=== PATIENT | female | born 1970 | race Caucasian/White ===

== ENCOUNTER 2020-11-12 11:02 | Day surgery (SDC) | payer BC ==
[~2020-11-12] VITALS: Ht 172.7 cm; Wt 94.5 kg
[~2020-11-12 11:02] MED LIST: ACETAMINOPHEN 500 MG TABLET PO PRN; ALBU2.5V8 INH; AMLO-186 PO; FEXO180T81 PO; HYDROmorphone 2 MG/ML VIAL IVP PRN; IV RINGERS,LACTATED 1000ML 1,000 ML IV SCH; LORA-434 PO; LOSA100T14 PO; MORPHINE SULFATE 2 MG/ML INJ. IVP PRN; PROCHLORPERAZINE 10 MG/2 ML VIAL. IVP PRN; SERT50TA PO; fentaNYL PF VIAL 100 MCG/2 ML VIAL IVP PRN
[2020-11-12 11:34] VITALS: BP 137/81
[2020-11-12] MEDS ORDERED: PROPOFOL 10 MG/ML (20ML) VIAL. IV ONE (12:36)
[2020-11-12] MEDS ORDERED: LIDOCAINE 2% PF 5 ML VIAL. ONE (12:37)
[2020-11-12] MEDS ORDERED: SUCCINYLCHOLINE 200 MG/10 ML VIAL. ONE (12:37)
[2020-11-12] MEDS ORDERED: ROCURONIUM 50 MG/5 ML VIAL. ONE (12:39)
[2020-11-12] MEDS ORDERED: DEXAMETHASONE SOD PHOS 4 MG/ML VIAL ONE (12:40)
[2020-11-12] MEDS ORDERED: ONDANSETRON PF 4 MG/2 ML VIAL. ONE (12:40)
[2020-11-12] MEDS ORDERED: fentaNYL PF VIAL 100 MCG/2 ML VIAL ONE (12:40)
[2020-11-12] MEDS ORDERED: BUPIVACAINE-EPI 0.25%-1:200000 MPF 30 ML VIAL. ONE (12:54)
[2020-11-12] MEDS ORDERED: NEOSTIGMINE METHYLSULFATE 5 MG/5 ML SYRINGE. ONE (13:27)
[2020-11-12] MEDS ORDERED: GLYCOPYRROLATE 1 MG/5 ML VIAL. ONE (13:27)
[2020-11-12] MEDS ORDERED: SEVOFLURANE UP TO 15 MINUTES. IH ONE (13:43)
[2020-11-12] MEDS ORDERED: SEVOFLURANE 61 TO 120 MINUTES. IH ONE (13:43)
--- NOTE | 2020-11-12 13:43 | PDOC4 ---
Operative Note Operative Note Date: November 12 twenty-one at thirteen [age] Preoperative diagnosis: Appendicitis Postoperative diagnosis: Same Procedure: Laparoscopic interval appendectomy Surgeon: Sanjay Specimen: Appendix Dictation: Patient is a 50-year-old female who 6 weeks ago had acute appendicitis with perforation and abscess that was drained at the time she was treated with antibiotics has subsequently improved. And returns now for interval appendectomy. Procedure of appendectomy was explained to the patient detail risk benefits were also discussed including bleeding infection injury to intra-abdominal contents possible necessitating further open operations alternatives to this procedure also discussed with the patient who seemed to understand and gave a verbal and written consent to have the procedure performed. Patient was taken to the operating room placed in the supine position general anesthesia was initiated once patient was sleeping intubated her abdomen was prepped and draped usual sterile fashion using ChloraPrep. An area just below the umbilicus was injected with quarter percent Marcaine with epinephrine incision was made eleven blade scalpel and a varies needle was placed within the abdomen creating pneumoperitoneum once this was complete 12 mm port was placed in a 5 mm camera was placed within the abdomen which was insp ected the appendix was noted to be in the right lower quadrant it was adherent to the lateral abdominal wall. A 5 mm port was placed low in the midline pelvis and a 5 mm port was placed in the right midabdomen all under direct visualization. The camera was moved with a 5 mm port in the pelvis the appendix was grasped retracted towards the anterior abdominal wall a window was prop agated the base of the appendix through the mesoappendix with a [place] dissector. A Endo JERMAINE stapler was used to staple and transect the base of the appendix. Blunt dissection was used to dissect the appendix off the lateral abdominal wall a second load for the stapler was used to staple and transect the mesoappendix. The appendix were then placed in Endo Catch bag and removed from the umbilicus right lower quadrant pelvis were irrigated and suctioned dry hemostasis need to be appropriate and the pneumoperitoneum was reduced all ports were removed the fascial defect at the umbilicus was closed with a [id number] 0 Vicryl suture and the skin was reapproximated all port sites for subcuticular Monocryl Mastisol Steri-Strips and island dressings were ap plied. Patient was awakened and extubated in the operating room taken to recovery in stable condition all sponge instrument needle counts listed as correct estimated blood loss 10 mL HAL KWON MD Nov 12, 2020 13:43
[2020-11-12] MEDS ORDERED: OXYC-325 PO (13:44)
--- NOTE | 2020-11-12 13:46 | DISCH ---
DISCHARGE INSTRUCTIONS Condition on Discharge Condition on Discharge: Stable Activity After Discharge Activity Instructions for Disc: Avoid exertion Other activity instructions: No lifting more than 20 pounds for 2 weeks Diet after Discharge Diet after Discharge: Regular Wound Incision Care Other wound/incision instructi: Esther shower in 24 hours Contacting the after DC Call your doctor for: If your condition worsens Follow-Up Follow up with: Dr. Kwon in 2 weeks HAL KWON MD Nov 12, 2020 13:46
[2020-11-12] MEDS ORDERED: oxyCODONE/APAP 5/325 1 TAB TABLET PO ONE (14:00)
[2020-11-12 14:30] VITALS: BP 134/89
--- NOTE | 2020-11-13 17:07 | PATHOLOGY ---
[facility] Accession Number: [id number] . 01 Material submitted: . appendix - APPENDIX . 01 Clinical history: . LAP APPY APPENDICEAL ABSCESS . 02 Diagnosis: Appendix, laparoscopic appendectomy: - Chronic appendicitis with periappendiceal fibrosis and resolving periappendiceal abscess. ([facility]; 11/13/2020) [facility] 11/13/2020 1350 Local . 02 Comment: There is no evidence of malignancy. ([facility]; 11/13/2020) . 02 Electronically signed: . Ricardo Mcintosh MD, Pathologist NPI- [id number] . 01 Gross description: . Fixative: Formalin Labeled: Appendix Appendix length: 6.7 cm Appendix diameter: Up to 1.3 cm Mesoappendix: 0.8 cm Proximal margin: Stapled Serosa: Light echeverria-santos and hemorrhagic Cut surface: Pinpoint to dilated lumen Luminal diameter: Up to 0.6 cm Perforation: Present Lesions/abnormalities: None identified A1 Proximal margin (inked black) and distal tip, bisected A2 Mid appendix([facility]; 11/12/2020) [facility] 11/12/2020 1752 Local . 02 Pathologist provided ICD-10: K36 . 02 CPT . 419799 Specimen Comment: A courtesy copy of this report has been sent to [phone], [phone] Specimen Comment: [id number] Specimen Comment: Report sent to / DR PAIGE Performed at: 01 [facility] [address], [place], [place] [id number] MD Nicholas Castaneda MD Phone: [phone] Performed at: 02 [facility] [address] [place], [place] [id number] MD Ricardo Mcintosh MD Phone: [phone]
== END 2020-11-12 14:50 | disposition home or self-care (01) ==
LOC: SURG 11:02
PROVIDERS: ATTEND Surgery
DX: K36 Other appendicitis (principal); I10 Essential (primary) hypertension; Z90.710 Acquired absence of both cervix and uterus; Z98.890 Other specified postprocedural states; Z79.899 Other long term (current) drug therapy; Z87.891 Personal history of nicotine dependence
CPT/HCPCS: 44970; A4314; A4364; A4930; A6219; J0330; J0690; J1100; J2405; J2704; J2710; J3010; J3490; 88304